=== PATIENT | male | born 1990 | race Caucasian/White ===

== ENCOUNTER 2018-03-30 18:19 | Emergency (ER) | payer OTHER ==
[~2018-03-30] VITALS: Ht 175.3 cm; Wt 88.5 kg
[~2018-03-30 18:19] MED LIST: FLONASE 0.05%50 MCG NASAL; RITALIN5 MG
[2018-03-30] MEDS ORDERED: PAXIL10 MG PO (18:37)
[2018-03-30] MEDS ORDERED: VITAMIN D1000 UNI1 PO (18:38)
[2018-03-30] MEDS ORDERED: ADDERALL 20 MG20 M1 PO (18:38)
[2018-03-30] MEDS ORDERED: PEPCID20 MG PO (18:38)
[2018-03-30] MEDS ORDERED: KEFLEX500 M1 PO (19:24)
[2018-03-30 19:42] VITALS: BP 138/86
== END 2018-03-30 19:43 | disposition home or self-care (01) ==
LOC: M.ERS 18:19
DX: S61.210A Laceration without foreign body of right index finger without damage to nail, initial encounter (principal); K21.9 Gastro-esophageal reflux disease without esophagitis; W26.8XXA Contact with other sharp object(s), not elsewhere classified, initial encounter; Y93.89 Activity, other specified; Y92.89 Other specified places as the place of occurrence of the external cause; Y99.8 Other external cause status